=== PATIENT | female | born 1940 | race Caucasian/White ===

== ENCOUNTER 2016-11-05 09:26 | Emergency (ER) | payer OTHER ==
[~2016-11-05] VITALS: Ht 152.4 cm; Wt 52.1 kg
[~2016-11-05 09:26] MED LIST: ADVAIR 250/501 DISK IH; ALBUTEROL SULF8.5 GM IH; ALBUTEROL2.5 MG/3 M IH; ALEVE220 M2 PO; ALPRAZOLAM0.25 M2 PO; ASPIR 8181 M1 PO; ASPIRIN325 MG PO; BACTRIM,SEPT1 TABLET PO; CARAFATE1 GM PO; DILTIAZEM 24HR180 MG PO; LEVOTHYROXINE25 MCG PO; MEDROL DOSEPAK4 MG PO; MOTRIN600 MG PO; NAPROSYN500 MG PO; NEURONTIN100 MG PO; NORCO 5/3251 TABLET PO; OXAYDO5 MG PO; PANTOPRAZOLE SO40 MG PO; PERCOCET 5/31 TABLET PO; PROTONIX40 MG PO; SIMVASTATIN40 MG PO; SPIRIVA1 INHALATI IH; SUCRALFATE1 GM PO; VALIUM2 MG PO; VENTOLIN HFA18 GM IH; VICODIN 5-3001 EACH PO
[2016-11-05 10:09] LABS: HEMATOCRIT 40.1 % (36.0-46.0); MCH 26.3 PG (29.0-34.0); MCHC 32.9 G/DL (30.0-36.0); MEAN PLAT.VOLUME 9.2 uM^3 (9.5-12.4); PLATELET COUNT 307 K/uL (156-360); RBC DIS.WIDTH-CV 15.3 % (11.8-14.6); RBC DIS.WIDTH-SD 44.1 % (39-53); RED BLOOD COUNT 5.01 M/uL (3.80-5.20); WHITE BLOOD COUNT 10.8 K/uL (4.1-10.2)
[2016-11-05 10:19] LABS: CHLORIDE 106 mEq/L (99-109); POTASSIUM 4.9 mEq/L (3.7-5.4); SODIUM 139 mEq/L (136-147)
[2016-11-05 10:20] LABS: D-DIMER ELISA 1.55 mg/L FEU (< 0.57); GLUCOSE 96 mg/dL (70-99)
[2016-11-05 10:22] LABS: ANION GAP 11 MEQ/L (2-14)
[2016-11-05 10:24] LABS: GFR ESTIMATE (CALCULATED) > 59 mL/min/
[2016-11-05 10:25] LABS: UREA NITROGEN (BUN) 21 mg/dL (9-23)
[2016-11-05 10:30] LABS: LIPASE 13 U/L (1.0-51.0); TROP-I INTERPRETATION NEGATIVE; TROPONIN-I < 0.01 ng/mL (0.0-0.30)
[2016-11-05 12:22] VITALS: BP 144/86
== END 2016-11-05 12:23 | disposition left against medical advice (07) ==
LOC: EME 09:26
PROVIDERS: Emergency Medicine
DX: R07.9 Chest pain, unspecified (principal); E78.5 Hyperlipidemia, unspecified; E03.9 Hypothyroidism, unspecified; Z87.891 Personal history of nicotine dependence
CPT/HCPCS: 71020; 71275; 80048; 83690; 84484; 85027; 85379; 93005; 99281; 99284

== ENCOUNTER 2016-12-30 14:41 | Inpatient (IN) | payer OTHER ==
[~2016-12-30] VITALS: Ht 152.4 cm; Wt 54.0 kg
[2016-12-30 15:29] LABS: MCH 26.3 PG (29.0-34.0); MCHC 32.8 G/DL (30.0-36.0); MCV 80.4 FL (83-99); PLATELET COUNT 225 K/uL (156-360); RBC DIS.WIDTH-CV 15.9 % (11.8-14.6); RBC DIS.WIDTH-SD 45.5 % (39-53); RED BLOOD COUNT 4.48 M/uL (3.80-5.20); WHITE BLOOD COUNT 6.4 K/uL (4.1-10.2)
[2016-12-30 15:37] LABS: CHLORIDE 106 mEq/L (99-109); POTASSIUM 3.7 mEq/L (3.7-5.4); SODIUM 139 mEq/L (136-147)
[2016-12-30 15:39] LABS: GLUCOSE 140 mg/dL (70-99)
[2016-12-30 15:40] LABS: ANION GAP 12 MEQ/L (2-14)
[2016-12-30 15:43] LABS: GFR ESTIMATE (CALCULATED) > 59 mL/min/; UREA NITROGEN (BUN) 16 mg/dL (9-23)
[2016-12-30 15:49] LABS: TROP-I INTERPRETATION NEGATIVE; TROPONIN-I < 0.01 ng/mL (0.0-0.30)
[2016-12-30 16:23] LABS: TOTAL BILIRUBIN 0.3 mg/dL (0.0-1.0)
[2016-12-30 16:24] LABS: ALKALINE PHOSPHATASE 74 IU/L (3-129)
[2016-12-30 18:53] LABS: BASE EXCESS -6.9 mEq/L (-3 to +3); BICARBONATE 18.5 mEq/L (22-26); CARBOXY HGB 0.7 % (0-5); COMMENTS - BLOOD GASES A+C+; METHEMOGLOBIN 1.1 % (0-1.5); O2 FLOW 3 L/MIN; PCO2 36 mm Hg (35-45); PO2 69 mm Hg (80-100); SITE LR; pH 7.32 (7.35-7.45)
[2016-12-30 18:54] LABS: DEVICE NC; TOTAL RESP RATE 35 resp/min
[2016-12-30] MEDS ORDERED: LEVO-T50 MCG PO ×2 (19:02→19:03)
[2016-12-30] MEDS ORDERED: PREDNISONE10 MG PO (19:05)
[2016-12-30] MEDS ORDERED: OMNICEF300 MG PO (19:07)
[2016-12-30] MEDS ORDERED: ALPRAZOLAM0.25 M2 PO (19:08)
[2016-12-30 21:44] VITALS: BP 135/77
[2016-12-31 03:38] VITALS: BP 165/72
[2016-12-31 07:16] LABS: ALKALINE PHOSPHATASE 62 IU/L (3-129); ANION GAP 14 MEQ/L (2-14); CHLORIDE 107 MEQ/L (99-109); GFR ESTIMATE (CALCULATED) > 59 mL/min/; GLUCOSE 171 mg/dL (70-99); IRON 37 MCG/DL (35-150); POTASSIUM 3.7 MEQ/L (3.7-5.4); SAMPLE HEMOLYSIS CHECK 0; SAMPLE ICTERIC CHECK 0; SAMPLE LIPEMIA CHECK 0; SODIUM 141 MEQ/L (136-147); TOTAL BILIRUBIN 0.4 MG/DL (0.0-1.0); UREA NITROGEN (BUN) 12 mg/dL (9-23)
[2016-12-31 08:13] VITALS: BP 127/80
[2016-12-31 08:31] LABS: EOSINOPHIL (%) 0 % (0-5); HEMATOCRIT 36.6 % (36.0-46.0); IMMATURE GRANULOCYTE (%) 0.7 % (0.0-0.7); LYMPHOCYTE COUNT 0.7 K/uL (1.0-2.8); MCH 25.1 PG (29.0-34.0); MCHC 30.9 G/DL (30.0-36.0); MCV 81.3 FL (83-99); MEAN PLAT.VOLUME 9.3 uM^3 (9.5-12.4); MONOCYTE (%) 3.6 % (3-12); MONOCYTE COUNT 0.2 K/uL (0-0.8); NEUTROPHIL (%) 83.5 % (45-76); NEUTROPHIL COUNT 5.1 K/uL (1.8-6.4); PLATELET COUNT 238 K/uL (156-360); RBC DIS.WIDTH-SD 47.8 % (39-53); WHITE BLOOD COUNT 6.1 K/uL (4.1-10.2)
[2016-12-31 08:52] LABS: FERRITIN 30 NG/ML (10-291)
[2016-12-31 12:18] VITALS: BP 151/76
[2016-12-31 15:34] VITALS: BP 136/82
[2016-12-31 18:24] LABS: INFLUENZA A VIRAL ANTIGEN NEGATIVE; INFLUENZA B VIRAL ANTIGEN NEGATIVE
[2016-12-31 20:01] VITALS: BP 141/96
[2016-12-31 23:53] VITALS: BP 130/65
[2017-01-01 04:00] VITALS: BP 132/67
[2017-01-01 07:55] VITALS: BP 127/73
[2017-01-01 11:30] VITALS: BP 139/65
[2017-01-01 15:00] VITALS: BP 147/66
[2017-01-01 23:29] VITALS: BP 130/80
[2017-01-02 07:44] VITALS: BP 143/67
[2017-01-02 11:49] VITALS: BP 150/65
[2017-01-02 14:58] VITALS: BP 135/75
[2017-01-03] VITALS: BP 130/67
[2017-01-03 07:08] LABS: HEMATOCRIT 32.8 % (36.0-46.0); MCH 26.4 PG (29.0-34.0); MCHC 32.3 G/DL (30.0-36.0); MCV 81.8 FL (83-99); RBC DIS.WIDTH-CV 15.9 % (11.8-14.6); RED BLOOD COUNT 4.01 M/uL (3.80-5.20); WHITE BLOOD COUNT 7.9 K/uL (4.1-10.2)
[2017-01-03 07:31] VITALS: BP 140/75
[2017-01-03 07:38] LABS: ANION GAP 11 MEQ/L (2-14); CHLORIDE 104 MEQ/L (99-109); GFR ESTIMATE (CALCULATED) > 59 mL/min/; GLUCOSE 202 mg/dL (70-99); MEAN PLAT.VOLUME 9.1 uM^3 (9.5-12.4); POTASSIUM 3.2 MEQ/L (3.7-5.4); SAMPLE HEMOLYSIS CHECK 0; SAMPLE ICTERIC CHECK 0; SAMPLE LIPEMIA CHECK 0; SODIUM 141 MEQ/L (136-147)
[2017-01-03 07:39] LABS: UREA NITROGEN (BUN) 24 mg/dL (9-23)
[2017-01-03 07:40] LABS: PLATELET COUNT 317 K/uL (156-360)
[2017-01-03 14:58] VITALS: BP 155/66
[2017-01-04 00:04] VITALS: BP 137/80
[2017-01-04 06:57] LABS: HEMATOCRIT 35.2 % (36.0-46.0); MCH 26.1 PG (29.0-34.0); MCHC 31.5 G/DL (30.0-36.0); MCV 82.6 FL (83-99); MEAN PLAT.VOLUME 9.1 uM^3 (9.5-12.4); PLATELET COUNT 349 K/uL (156-360); RBC DIS.WIDTH-CV 15.8 % (11.8-14.6); RBC DIS.WIDTH-SD 47.3 % (39-53); RED BLOOD COUNT 4.26 M/uL (3.80-5.20); WHITE BLOOD COUNT 9.5 K/uL (4.1-10.2)
[2017-01-04 07:18] LABS: ANION GAP 9 MEQ/L (2-14); CHLORIDE 103 MEQ/L (99-109); GFR ESTIMATE (CALCULATED) > 59 mL/min/; GLUCOSE 194 mg/dL (70-99); POTASSIUM 3.6 MEQ/L (3.7-5.4); SAMPLE HEMOLYSIS CHECK 0; SAMPLE ICTERIC CHECK 0; SAMPLE LIPEMIA CHECK 0; SODIUM 139 MEQ/L (136-147); UREA NITROGEN (BUN) 21 mg/dL (9-23)
[2017-01-04 07:57] VITALS: BP 182/73
[2017-01-04 11:00] VITALS: BP 138/69
[2017-01-04 15:41] VITALS: BP 148/71
[2017-01-04 23:54] VITALS: BP 128/69
[2017-01-05 07:25] VITALS: BP 138/68
[2017-01-05 15:24] VITALS: BP 144/69
[2017-01-06 00:12] VITALS: BP 145/69
[2017-01-06 07:22] LABS: ANION GAP 8 MEQ/L (2-14); CHLORIDE 102 MEQ/L (99-109); GFR ESTIMATE (CALCULATED) > 59 mL/min/; GLUCOSE 243 mg/dL (70-99); POTASSIUM 3.5 MEQ/L (3.7-5.4); SAMPLE HEMOLYSIS CHECK 0; SAMPLE ICTERIC CHECK 0; SAMPLE LIPEMIA CHECK 0; SODIUM 142 MEQ/L (136-147)
[2017-01-06 07:26] LABS: UREA NITROGEN (BUN) 32 mg/dL (9-23)
[2017-01-06 07:27] VITALS: BP 143/73
[2017-01-06 15:05] VITALS: BP 149/67
[2017-01-06 23:51] VITALS: BP 155/67
[2017-01-07 07:44] LABS: ANION GAP 8 MEQ/L (2-14); CHLORIDE 102 MEQ/L (99-109); GFR ESTIMATE (CALCULATED) > 59 mL/min/; GLUCOSE 230 mg/dL (70-99); POTASSIUM 3.6 MEQ/L (3.7-5.4); SAMPLE HEMOLYSIS CHECK 0; SAMPLE ICTERIC CHECK 0; SAMPLE LIPEMIA CHECK 0; SODIUM 141 MEQ/L (136-147); UREA NITROGEN (BUN) 30 mg/dL (9-23)
[2017-01-07 07:45] VITALS: BP 149/71
[2017-01-07] MEDS ORDERED: SENNA PLUS TAB1 EACH PO (14:10)
[2017-01-07] MEDS ORDERED: MEDROL DOSEPAK4 MG PO (14:11)
[2017-01-07 15:23] VITALS: BP 144/83
[2017-01-08 00:05] VITALS: BP 156/82
[2017-01-08 07:20] LABS: ANION GAP 10 MEQ/L (2-14); CHLORIDE 103 MEQ/L (99-109); GFR ESTIMATE (CALCULATED) > 59 mL/min/; GLUCOSE 259 mg/dL (70-99); POTASSIUM 3.6 MEQ/L (3.7-5.4); SAMPLE HEMOLYSIS CHECK 0; SAMPLE ICTERIC CHECK 0; SAMPLE LIPEMIA CHECK 0; SODIUM 142 MEQ/L (136-147); UREA NITROGEN (BUN) 28 mg/dL (9-23)
[2017-01-08 07:34] LABS: HEMATOCRIT 34.1 % (36.0-46.0); MCH 26.4 PG (29.0-34.0); MCHC 30.8 G/DL (30.0-36.0); MCV 85.7 FL (83-99); MEAN PLAT.VOLUME 9.7 uM^3 (9.5-12.4); PLATELET COUNT 323 K/uL (156-360); RBC DIS.WIDTH-CV 15.9 % (11.8-14.6); RBC DIS.WIDTH-SD 49.5 % (39-53); RED BLOOD COUNT 3.98 M/uL (3.80-5.20)
[2017-01-08 07:39] VITALS: BP 149/78
[2017-01-08 07:41] LABS: WHITE BLOOD COUNT 13.7 K/uL (4.1-10.2)
[2017-01-08 15:35] VITALS: BP 155/67
[2017-01-09] VITALS: BP 147/69
[2017-01-09 07:33] LABS: EOSINOPHIL (%) 0.1 % (0-5); HEMATOCRIT 32.3 % (36.0-46.0); IMMATURE GRANULOCYTE (%) 3.7 % (0.0-0.7); IMMATURE GRANULOCYTE COUNT 0.7 K/uL; INSTRUMENT ABS NEUTROPHIL CT 15.8 K/uL; LYMPHOCYTE COUNT 1.4 K/uL (1.0-2.8); MCH 26.2 PG (29.0-34.0); MCV 84.6 FL (83-99); MEAN PLAT.VOLUME 9.1 uM^3 (9.5-12.4); MONOCYTE (%) 5.5 % (3-12); NEUTROPHIL (%) 83.2 % (45-76); NEUTROPHIL COUNT 15.8 K/uL (1.8-6.4); PLATELET COUNT 302 K/uL (156-360); RBC DIS.WIDTH-CV 15.5 % (11.8-14.6); RBC DIS.WIDTH-SD 46.8 % (39-53); RED BLOOD COUNT 3.82 M/uL (3.80-5.20)
[2017-01-09 07:51] LABS: ANION GAP 6 MEQ/L (2-14); CHLORIDE 102 MEQ/L (99-109); GFR ESTIMATE (CALCULATED) > 59 mL/min/; GLUCOSE 178 mg/dL (70-99); POTASSIUM 3.3 MEQ/L (3.7-5.4); SAMPLE HEMOLYSIS CHECK 0; SAMPLE ICTERIC CHECK 0; SAMPLE LIPEMIA CHECK 0; SODIUM 140 MEQ/L (136-147); UREA NITROGEN (BUN) 24 mg/dL (9-23)
[2017-01-09 08:14] VITALS: BP 155/75
[2017-01-09 11:58] VITALS: BP 120/68
[2017-01-09 15:52] VITALS: BP 123/75
[2017-01-10] VITALS (17 sets, daily range): BP systolic 112–149; BP diastolic 45–73
[2017-01-10 07:33] LABS: EOSINOPHIL (%) 0 % (0-5); HEMATOCRIT 25.8 % (36.0-46.0); IMMATURE GRANULOCYTE COUNT 0.5 K/uL; INSTRUMENT ABS NEUTROPHIL CT 20.5 K/uL; LYMPHOCYTE COUNT 1.3 K/uL (1.0-2.8); MCH 26.1 PG (29.0-34.0); MCV 84.3 FL (83-99); MEAN PLAT.VOLUME 9.9 uM^3 (9.5-12.4); MONOCYTE (%) 5.4 % (3-12); MONOCYTE COUNT 1.3 K/uL (0-0.8); NEUTROPHIL (%) 86.9 % (45-76); NEUTROPHIL COUNT 20.5 K/uL (1.8-6.4); NRBC (%) 0.1 /100 WBC (0-0); PLATELET COUNT 235 K/uL (156-360); RBC DIS.WIDTH-CV 15.9 % (11.8-14.6); RBC DIS.WIDTH-SD 48.9 % (39-53); RED BLOOD COUNT 3.06 M/uL (3.80-5.20); WHITE BLOOD COUNT 23.6 K/uL (4.1-10.2)
[2017-01-10 07:35] LABS: ANION GAP 11 MEQ/L (2-14); CHLORIDE 104 MEQ/L (99-109); GFR ESTIMATE (CALCULATED) > 59 mL/min/; GLUCOSE 231 mg/dL (70-99); SAMPLE HEMOLYSIS CHECK 0; SAMPLE ICTERIC CHECK 0; SAMPLE LIPEMIA CHECK 0; SODIUM 140 MEQ/L (136-147)
[2017-01-10 07:36] LABS: POTASSIUM 4.4 MEQ/L (3.7-5.4); UREA NITROGEN (BUN) 37 mg/dL (9-23)
[2017-01-10 10:52] LABS: HEMATOCRIT 24.5 % (36.0-46.0); MCH 26.8 PG (29.0-34.0); MCHC 31.4 G/DL (30.0-36.0); MCV 85.4 FL (83-99); PLATELET COUNT 212 K/uL (156-360); RBC DIS.WIDTH-CV 15.8 % (11.8-14.6); RBC DIS.WIDTH-SD 48.7 % (39-53); RED BLOOD COUNT 2.87 M/uL (3.80-5.20); WHITE BLOOD COUNT 27.1 K/uL (4.1-10.2)
[2017-01-10 13:34] LABS: MEAN PLAT.VOLUME 10.1 uM^3 (9.5-12.4); PLATELET COUNT 199 K/uL (156-360)
[2017-01-10 13:50] LABS: MCH 26.5 PG (29.0-34.0); MCHC 30.8 G/DL (30.0-36.0); RBC DIS.WIDTH-CV 15.9 % (11.8-14.6); RED BLOOD COUNT 2.79 M/uL (3.80-5.20)
[2017-01-10 16:05] LABS: PROTHROMBIN TIME 10.2 (9.2-11.2); PTT 27.5 (25-32)
[2017-01-10 18:21] LABS: HEMATOCRIT 31.3 % (36.0-46.0); MCH 28.5 PG (29.0-34.0); MCHC 32.9 G/DL (30.0-36.0); MCV 86.7 FL (83-99); MEAN PLAT.VOLUME 10.6 uM^3 (9.5-12.4); PLATELET COUNT 187 K/uL (156-360); RBC DIS.WIDTH-CV 15.3 % (11.8-14.6); RBC DIS.WIDTH-SD 48.2 % (39-53); WHITE BLOOD COUNT 29.3 K/uL (4.1-10.2)
[2017-01-10 18:25] LABS: RED BLOOD COUNT 3.61 M/uL (3.80-5.20)
[2017-01-10 19:21] LABS: METH RESISTANT S AUREUS PCR NEGATIVE (NEGATIVE)
[2017-01-10 19:36] LABS: PROBE CHECK PASS; SPECIMEN PROCESSING CONTROL PASS
[2017-01-10 21:47] LABS: HEMATOCRIT 29.5 % (36.0-46.0); MCH 28.2 PG (29.0-34.0); MCHC 32.5 G/DL (30.0-36.0); MCV 86.5 FL (83-99); MEAN PLAT.VOLUME 9.9 uM^3 (9.5-12.4); NRBC (%) 0.1 /100 WBC (0-0); PLATELET COUNT 133 K/uL (156-360); RBC DIS.WIDTH-CV 15.2 % (11.8-14.6); RBC DIS.WIDTH-SD 48.1 % (39-53); RED BLOOD COUNT 3.41 M/uL (3.80-5.20); WHITE BLOOD COUNT 21.9 K/uL (4.1-10.2)
[2017-01-11] VITALS (17 sets, daily range): BP systolic 100–146; BP diastolic 44–80
[2017-01-11 06:08] LABS: HEMATOCRIT 25.8 % (36.0-46.0); MCH 28.6 PG (29.0-34.0); MCHC 32.6 G/DL (30.0-36.0); MCV 87.8 FL (83-99); MEAN PLAT.VOLUME 9.6 uM^3 (9.5-12.4); NRBC (%) 0.4 /100 WBC (0-0); PLATELET COUNT 141 K/uL (156-360); RBC DIS.WIDTH-CV 15.3 % (11.8-14.6); RBC DIS.WIDTH-SD 48.8 % (39-53); RED BLOOD COUNT 2.94 M/uL (3.80-5.20)
[2017-01-11 06:14] LABS: ANION GAP 8 MEQ/L (2-14); CHLORIDE 108 MEQ/L (99-109); GFR ESTIMATE (CALCULATED) > 59 mL/min/; GLUCOSE 193 mg/dL (70-99); SAMPLE HEMOLYSIS CHECK 0; SAMPLE ICTERIC CHECK 0; SAMPLE LIPEMIA CHECK 0; SODIUM 140 MEQ/L (136-147); UREA NITROGEN (BUN) 23 mg/dL (9-23)
[2017-01-11 06:20] LABS: WHITE BLOOD COUNT 14.9 K/uL (4.1-10.2)
[2017-01-11 15:05] LABS: HEMATOCRIT 25.2 % (36.0-46.0); MCV 86.6 FL (83-99)
[2017-01-11 23:50] LABS: HEMATOCRIT 20.8 % (36.0-46.0)
[2017-01-12] VITALS (13 sets, daily range): BP systolic 122–171; BP diastolic 65–101
[2017-01-12 06:07] LABS: ALKALINE PHOSPHATASE 46 IU/L (3-129); ANION GAP 8 MEQ/L (2-14); CHLORIDE 101 MEQ/L (99-109); GFR ESTIMATE (CALCULATED) > 59 mL/min/; POTASSIUM 3.4 MEQ/L (3.7-5.4); SAMPLE HEMOLYSIS CHECK 0; SAMPLE ICTERIC CHECK 0; SAMPLE LIPEMIA CHECK 0; SODIUM 136 MEQ/L (136-147); TOTAL BILIRUBIN 1.1 MG/DL (0.0-1.0); UREA NITROGEN (BUN) 13 mg/dL (9-23)
[2017-01-12 06:08] LABS: GLUCOSE 113 mg/dL (70-99)
[2017-01-12 06:29] LABS: HEMATOCRIT 31.2 % (36.0-46.0); MCH 28.9 PG (29.0-34.0); NRBC (%) 0.2 /100 WBC (0-0); RBC DIS.WIDTH-CV 14.3 % (11.8-14.6); RBC DIS.WIDTH-SD 44.2 % (39-53)
[2017-01-12 07:27] LABS: PLATELET COUNT 207 K/uL (156-360); RED BLOOD COUNT 3.67 M/uL (3.80-5.20)
[2017-01-12 07:32] LABS: EOSINOPHIL (%) 0.2 % (0-5); IMMATURE GRANULOCYTE (%) 4.1 % (0.0-0.7); IMMATURE GRANULOCYTE COUNT 0.5 K/uL; LYMPHOCYTE COUNT 0.9 K/uL (1.0-2.8); MONOCYTE (%) 5.6 % (3-12); MONOCYTE COUNT 0.6 K/uL (0-0.8); NEUTROPHIL (%) 81.8 % (45-76); PLAT.SUFFICIENCY ADEQUATE
[2017-01-12 10:34] LABS: MAGNESIUM 1.7 mg/dl (1.3-2.7)
[2017-01-12 10:41] LABS: INTERNAL CONTROL VALID? YES
[2017-01-12 11:03] LABS: ADD MIUA? YES; BILIRUBIN NEGATIVE; BLOOD SMALL; COLOR STRAW ((YELLOW)); GLUCOSE (STRIP) 50; KETONES NEGATIVE; LEUKOCYTES NEGATIVE; NITRITE NEGATIVE; PROTEIN (STRIP) NEGATIVE; UROBILINOGEN 0.2 MG/DL (0.2-1.0)
[2017-01-12 11:13] LABS: BACTERIA NONE SEEN /HPF; EPITHELIAL CELLS RARE /HPF; MUCUS NONE SEEN /LPF; RED BLOOD CELLS 0-5 /HPF (0-5); UCUL ADDED? NO; WHITE BLOOD CELLS 0-5 /HPF (0-5)
[2017-01-12 14:10] LABS: IMM.RETIC FRACTION 25.3 % (3-19); MCV 84.7 FL (83-99); RETIC HGB EQUIVALENT 36.9 (28-36); RETICULOCYTE COUNT 1.5 % (0.5-1.8)
[2017-01-12 21:33] LABS: HEMATOCRIT 38.7 % (36.0-46.0); MCV 83.8 FL (83-99)
[2017-01-13] VITALS (7 sets, daily range): BP systolic 122–148; BP diastolic 67–80
[2017-01-13 08:44] LABS: HEMATOCRIT 38.1 % (36.0-46.0); MCH 28.8 PG (29.0-34.0); MCHC 34.1 G/DL (30.0-36.0); MCV 84.5 FL (83-99); MEAN PLAT.VOLUME 9.1 uM^3 (9.5-12.4); PLATELET COUNT 215 K/uL (156-360); RBC DIS.WIDTH-SD 45.4 % (39-53); WHITE BLOOD COUNT 12.1 K/uL (4.1-10.2)
[2017-01-13 08:55] LABS: RED BLOOD COUNT 4.51 M/uL (3.80-5.20)
[2017-01-13 09:09] LABS: ANION GAP 10 MEQ/L (2-14); CHLORIDE 97 MEQ/L (99-109); GFR ESTIMATE (CALCULATED) > 59 mL/min/; GLUCOSE 95 mg/dL (70-99); POTASSIUM 3.6 MEQ/L (3.7-5.4); SAMPLE HEMOLYSIS CHECK 0; SAMPLE ICTERIC CHECK 0; SAMPLE LIPEMIA CHECK 0; SODIUM 132 MEQ/L (136-147); UREA NITROGEN (BUN) 14 mg/dL (9-23)
[2017-01-14 00:14] VITALS: BP 140/67
[2017-01-14 04:00] VITALS: BP 161/79
[2017-01-14 05:35] LABS: EOSINOPHIL (%) 0.2 % (0-5); HEMATOCRIT 37.8 % (36.0-46.0); IMMATURE GRANULOCYTE (%) 1.8 % (0.0-0.7); IMMATURE GRANULOCYTE COUNT 0.2 K/uL; INSTRUMENT ABS NEUTROPHIL CT 9.2 K/uL; MCHC 33.9 G/DL (30.0-36.0); MCV 85.5 FL (83-99); MEAN PLAT.VOLUME 9.3 uM^3 (9.5-12.4); MONOCYTE (%) 5.6 % (3-12); MONOCYTE COUNT 0.6 K/uL (0-0.8); NEUTROPHIL (%) 83.5 % (45-76); NEUTROPHIL COUNT 9.2 K/uL (1.8-6.4); PLATELET COUNT 186 K/uL (156-360); RBC DIS.WIDTH-CV 15.3 % (11.8-14.6); RBC DIS.WIDTH-SD 45.9 % (39-53); RED BLOOD COUNT 4.42 M/uL (3.80-5.20)
[2017-01-14 05:42] LABS: ALKALINE PHOSPHATASE 46 IU/L (3-129); ANION GAP 10 MEQ/L (2-14); CHLORIDE 96 MEQ/L (99-109); GFR ESTIMATE (CALCULATED) > 59 mL/min/; GLUCOSE 118 mg/dL (70-99); POTASSIUM 3.1 MEQ/L (3.7-5.4); SAMPLE HEMOLYSIS CHECK 0; SAMPLE ICTERIC CHECK 0; SAMPLE LIPEMIA CHECK 0; SODIUM 134 MEQ/L (136-147); TOTAL BILIRUBIN 1.3 MG/DL (0.0-1.0); UREA NITROGEN (BUN) 15 mg/dL (9-23)
[2017-01-14 08:43] VITALS: BP 152/84
[2017-01-14 11:27] VITALS: BP 184/96
[2017-01-14 14:57] LABS: COAG FACTOR IX ACTIVITY+ 175 % (60-160)
[2017-01-14 17:37] VITALS: BP 132/78
[2017-01-14 20:10] VITALS: BP 133/86
[2017-01-15] VITALS (7 sets, daily range): BP systolic 126–152; BP diastolic 58–76
[2017-01-15 07:51] LABS: HEMATOCRIT 39.8 % (36.0-46.0); MCH 28.8 PG (29.0-34.0); MCHC 32.9 G/DL (30.0-36.0); MCV 87.5 FL (83-99); PLATELET COUNT 152 K/uL (156-360); RBC DIS.WIDTH-CV 15.9 % (11.8-14.6); RBC DIS.WIDTH-SD 48.7 % (39-53); RED BLOOD COUNT 4.55 M/uL (3.80-5.20); WHITE BLOOD COUNT 12.4 K/uL (4.1-10.2)
[2017-01-15 09:26] LABS: ANION GAP 9 MEQ/L (2-14); CHLORIDE 100 MEQ/L (99-109); GFR ESTIMATE (CALCULATED) > 59 mL/min/; GLUCOSE 123 mg/dL (70-99); SAMPLE HEMOLYSIS CHECK 0; SAMPLE ICTERIC CHECK 0; SAMPLE LIPEMIA CHECK 0; SODIUM 137 MEQ/L (136-147); UREA NITROGEN (BUN) 17 mg/dL (9-23)
[2017-01-15 09:27] LABS: POTASSIUM 3.9 MEQ/L (3.7-5.4)
[2017-01-16] VITALS: BP 117/57
[2017-01-16 03:53] VITALS: BP 119/59
[2017-01-16 07:26] LABS: EOSINOPHIL (%) 0.1 % (0-5); HEMATOCRIT 38.6 % (36.0-46.0); IMMATURE GRANULOCYTE (%) 0.9 % (0.0-0.7); IMMATURE GRANULOCYTE COUNT 0.1 K/uL; INSTRUMENT ABS NEUTROPHIL CT 9.3 K/uL; MCH 28.8 PG (29.0-34.0); MCHC 32.4 G/DL (30.0-36.0); MCV 88.9 FL (83-99); MONOCYTE (%) 3.7 % (3-12); MONOCYTE COUNT 0.4 K/uL (0-0.8); NEUTROPHIL COUNT 9.3 K/uL (1.8-6.4); PLATELET COUNT 134 K/uL (156-360); RBC DIS.WIDTH-CV 16.1 % (11.8-14.6); RBC DIS.WIDTH-SD 50.1 % (39-53); RED BLOOD COUNT 4.34 M/uL (3.80-5.20); WHITE BLOOD COUNT 10.8 K/uL (4.1-10.2)
[2017-01-16 07:50] LABS: ANION GAP 6 MEQ/L (2-14); CHLORIDE 101 MEQ/L (99-109); GFR ESTIMATE (CALCULATED) > 59 mL/min/; GLUCOSE 126 mg/dL (70-99); SAMPLE HEMOLYSIS CHECK 0; SAMPLE ICTERIC CHECK 0; SAMPLE LIPEMIA CHECK 0; SODIUM 136 MEQ/L (136-147); UREA NITROGEN (BUN) 22 mg/dL (9-23)
[2017-01-16 08:00] VITALS: BP 119/56
[2017-01-16 16:16] VITALS: BP 121/59
[2017-01-16 19:20] VITALS: BP 101/55
[2017-01-16 23:20] VITALS: BP 115/59
[2017-01-17 03:40] VITALS: BP 108/56
[2017-01-17 07:03] LABS: HEMATOCRIT 37.6 % (36.0-46.0); MCHC 32.7 G/DL (30.0-36.0); MCV 88.7 FL (83-99); MEAN PLAT.VOLUME 9.2 uM^3 (9.5-12.4); PLATELET COUNT 125 K/uL (156-360); RBC DIS.WIDTH-SD 50.1 % (39-53); RED BLOOD COUNT 4.24 M/uL (3.80-5.20); WHITE BLOOD COUNT 9.9 K/uL (4.1-10.2)
[2017-01-17 08:01] VITALS: BP 119/59
[2017-01-17 11:17] VITALS: BP 138/61
[2017-01-17 15:28] VITALS: BP 134/94
[2017-01-17 20:01] VITALS: BP 124/59
[2017-01-17 23:30] VITALS: BP 116/76
[2017-01-18 04:32] VITALS: BP 120/58
[2017-01-18 08:00] VITALS: BP 134/60
[2017-01-18 12:00] VITALS: BP 143/62
[2017-01-18 16:00] VITALS: BP 121/77
[2017-01-18 20:15] VITALS: BP 123/56
[2017-01-19] VITALS (7 sets, daily range): BP systolic 109–135; BP diastolic 53–62
[2017-01-20 04:06] VITALS: BP 130/60
[2017-01-20 08:22] VITALS: BP 112/63
[2017-01-20 12:23] VITALS: BP 124/60
[2017-01-20 16:47] VITALS: BP 117/60
[2017-01-20 19:52] VITALS: BP 111/55
[2017-01-20 23:42] VITALS: BP 104/51
[2017-01-21 04:07] VITALS: BP 114/58
[2017-01-21 08:54] VITALS: BP 120/75
[2017-01-21 12:00] VITALS: BP 116/51
[2017-01-21 16:00] VITALS: BP 107/59
[2017-01-21 20:00] VITALS: BP 109/54
[2017-01-22 00:09] VITALS: BP 124/61
[2017-01-22 04:00] VITALS: BP 126/60
[2017-01-22 07:47] VITALS: BP 112/52
[2017-01-22 12:36] VITALS: BP 98/55
[2017-01-22] MEDS ORDERED: LOSARTAN POTASS50 MG PO (14:03)
[2017-01-22] MEDS ORDERED: TRAMADOL HCL50 MG PO (14:03)
[2017-01-22] MEDS ORDERED: SPIRIVA RESPIMAT4 GM IH (14:03)
[2017-01-22] MEDS ORDERED: SYNTHROID50 MCG PO (14:03)
[2017-01-22] MEDS ORDERED: GUAIFENESI100 MG/5 M PO (14:03)
[2017-01-22] MEDS ORDERED: LIDOCAINE700 MG TD (14:03)
[2017-01-22] MEDS ORDERED: BISACODYL5 MG PO (14:03)
[2017-01-22] MEDS ORDERED: PREDNISONE20 MG PO (14:03)
[2017-01-22] MEDS ORDERED: ALPRAZOLAM0.25 M2 PO (14:03)
[2017-01-22] MEDS ORDERED: ADVAIR HFA120 INHALA IH (14:03)
[2017-01-22] MEDS ORDERED: DUONEB 2.5-0.5 M3 ML AEROSOL (14:03)
[2017-01-22] MEDS ORDERED: TYLENOL REGULA325 MG PO (14:03)
[2017-01-22] MEDS ORDERED: PANTOPRAZOLE SO40 MG PO (14:03)
[2017-01-22] MEDS ORDERED: DILTIAZEM 24HR180 MG PO (14:03)
[2017-01-22 16:07] VITALS: BP 98/50
[2017-01-23 17:17] LABS: Ristocetin Cofactor Activity 431 % (42-200); VON WILLEBRAND FACTOR ANTIGEN >420 % (50-217); vWB APTT 24 sec (22-34)
== END 2017-01-22 16:18 | DRG 871 ==
LOC: EME → EDBD 14:41 → 4WEST 20:26 → 5SOUTH 20:26 → EDOF 20:26 → 5SOUTH 21:26 → 4WEST 01-10 17:40 → 4SOUTH 01-13 09:31
PROVIDERS: Emergency Medicine; Hospitalist; Internal Medicine; Internal Medicine Hematology & Oncology; Internal Medicine Pulmonary Disease; Nurse Practitioner Adult Health; Physician Assistant Medical; Student in an Organized Health Care Education/Training Program
DX: A41.9 Sepsis, unspecified organism (principal); J44.1 Chronic obstructive pulmonary disease with (acute) exacerbation; E87.2 Acidosis; D62 Acute posthemorrhagic anemia; J96.21 Acute and chronic respiratory failure with hypoxia; K66.1 Hemoperitoneum; E78.5 Hyperlipidemia, unspecified; E03.9 Hypothyroidism, unspecified; F41.9 Anxiety disorder, unspecified; J20.9 Acute bronchitis, unspecified; Z99.81 Dependence on supplemental oxygen; Z88.1 Allergy status to other antibiotic agents; Z88.8 Allergy status to other drugs, medicaments and biological substances; Z91.14 Patient's other noncompliance with medication regimen; Z87.891 Personal history of nicotine dependence; T39.015A Adverse effect of aspirin, initial encounter; E87.6 Hypokalemia; M62.89 Other specified disorders of muscle; S50.11XA Contusion of right forearm, initial encounter; D72.829 Elevated white blood cell count, unspecified; I10 Essential (primary) hypertension; G89.29 Other chronic pain; Y92.230 Patient room in hospital as the place of occurrence of the external cause
CPT/HCPCS: 36600; 71010; 71020; 71275; 73502; 74000; 74174; 74177; 80048; 80053; 80202; 81003; 82272; 82728; 82803; 83520 90; 83540; 83605; 83630; 83735; 83880; 84145 90; 84466; 84484; 85014; 85018; 85025; 85027; 85045; 85240 90; 85245 90; 85246 90; 85247 90; 85250 90; 85290 90; 85610; 85730; 85730 90; 86850; 86900; 86901; 86920; 87040; 87070; 87177; 87205; 87493; 87502; 87641; 93005; 93971; 94010; 94640; 94640 76; 94644; 94667; 94668; 94760; 94799; 97530 GO; 97530 GP; 99202; 99281; 99285; J0456; J1100; J1200; J1644; J1940; J2060; J2270; J2543; J2597; J2920; J2930; J3370; J7030; J7050; J7512; J7644; P9016; P9035